=== PATIENT | male | born 2005 | race Caucasian/White ===

== ENCOUNTER 2023-02-02 21:47 | Emergency (ER) | payer OTHER, SELFPAY ==
--- NOTE | ~2023-02-02 | XR_ITS ---
XR knee LT 3V DATE: 02/02/2023 22:26 INDICATION: Fall. Lateral left knee pain TECHNIQUE: 3 views including AP and lateral projections COMPARISON: None FINDINGS: There is evidence of a virtually nondisplaced transverse metaphyseal fracture of the proxim al tibia. There is prominent distention of the suprapatellar bursa consistent with lipohemarthrosis. Consider CT or MR the examination for more definitive evaluation. IMPRESSION: Proximal tibial metaphyseal fracture with hemarthrosis Reviewed, dictated and finalized at location A.
--- NOTE | ~2023-02-02 | XR_ITS ---
XR knee LT min 4V DATE: 02/02/2023 23:44 INDICATION: XR knee LT min 4V DATE: 02/02/2023 23:44 TECHNIQUE: 4 views COMPARISON: None FINDINGS: Suprapatellar knee joint effusion is noted. There is a subtle transverse nondisplaced metaphyseal fracture of the tibia. No other fracture or dislocation is detected. IMPRESSION: Transverse metaphyseal fracture of the proximal tibia Reviewed, dictated and finalized at location A.
[2023-02-02 21:56] VITALS: BP 110/70; PULSE 98; RESP 16; TEMP 36.7; O2SAT 99
--- NOTE | 2023-02-02 22:56 | ED.GENADULT ---
HPI - General Adult General Chief complaint: Extremity Injury, Lower Stated complaint: L knee injury Time Seen by Provider: 02/02/23 22:09 Source: patient Mode of arrival: ambulatory Limitations: no limitations History of Present Illness HPI narrative: This is a 17-year-old biological male who presents as female who presents for chief complaint of left knee injury occurring just prior to arrival. Patient states that she was running through the street and feels like she may have stepped in a pothole. She states her ankle twisted and she hyperextended the knee. Reports immediate pain and difficulty with ambulation after this injury. Endorses audible pop. Denies any further site of pain or injury. Denies ankle pain. Related Data Allergies Allergy/AdvReac Type Severity Reaction Status Date / Time ibuprofen Allergy Anaphylaxis Verified 02/02/23 23:04 Review of Systems Review of Systems: CONSTITUTIONAL: Denies fever, chills, or sweats. EYES: Denies visual changes, redness, or discharge. ENT: Denies rhinorrhea, congestion, sore throat, or otalgia. CARDIOVASCULAR: Denies chest pain, palpitations, or edema. RESPIRATORY: Denies cough or dyspnea. GASTROINTESTINAL: Denies abdominal pain, nausea, vomiting, or diarrhea. GENITOURINARY: Denies dysuria or hematuria. SKIN: Denies rash or itching. MUSCULOSKELETAL: See HPI NEUROLOGIC: Denies headache, numbness, dizziness, or weakness. PSYCHIATRIC: Denies anxiety or depression. Exam Narrative: GENERAL: Well-appearing, well-nourished, and in no acute distress. HEAD: Normocephalic, atraumatic. EYES: PERRLA and EOMI. ENT: Nares clear, no rhinorrhea or epistaxis. Mucous membranes moist. Oropharynx without tonsillar hypertrophy exudate or other lesions. NECK: Supple. No adenopathy or masses. CHEST: No respiratory distress. Clear to auscultation. No wheezes rales or rhonchi HEART: Regular rate and rhythm. No murmur heard. Normal peripheral pulses. ABDOMEN: Soft, nontender, nondistended, normal active bowel sounds. MSK: Left knee: No obvious deformity or bruising present. Minimal swelling present. Tenderness throughout the knee. Active range of motion reduced due to pain. Full passive range of motion with pain. Neurovascularly intact distally. Right knee: Benign. SKIN: Warm, dry, no rash. NEURO: Alert and oriented x3. No focal deficits. PSYCH: Normal mood and affect. Course Vital Signs Vital signs: Vital Signs Temperature 98.1 F 02/02/23 21:56 Pulse Rate 98 02/02/23 21:56 Respiratory Rate 16 02/02/23 21:56 Blood Pressure 110/70 02/02/23 21:56 Pulse Oximetry 99 02/02/23 21:56 Oxygen Delivery Room Air 02/02/23 21:56 Temperature 98.4 F 02/03/23 00:30 Pulse Rate 103 H 02/03/23 00:30 Respiratory Rate 15 02/03/23 00:30 Blood Pressure 124/89 02/03/23 00:30 Pulse Oximetry 98 02/03/23 00:30 Oxygen Delivery Room Air 02/02/23 21:56 Medical Decision Making MDM Narrative Medical decision making narrative: This is a 17-year-old biological male who presents as female and comes in for chief complaint of left knee injury. [place] she had a hyperextension injury. Vitals are stable. Exam shows a stable knee. X-rays are negative for any acute fractures or dislocations. Feel her symptoms are more consistent with a ligamentous or muscular strain/sprain. She will be put in a knee immobilizer and discharged in stable condition. Orthopedic referral given. Supportive measures and return precautions discussed. Patient is understanding and agreeable with the plan for discharge and follow-up with specialist. Vital Signs Vital Signs: Vital Signs Temperature 98.1 F 02/02/23 21:56 Pulse Rate 98 02/02/23 21:56 Respiratory Rate 16 02/02/23 21:56 Blood Pressure 110/70 02/02/23 21:56 Pulse Oximetry 99 02/02/23 21:56 Oxygen Delivery Room Air 02/02/23 21:56 Temperature 98.4 F 02/03/23 00:30 Pulse Rate 103 H 02/03/23 00:30
[2023-02-02] MEDS: HYDROcodone/acetaminophen (*CRX) 5-325 MG TABLET 1 TAB PO (23:05)
[2023-02-03 00:30] VITALS: BP 124/89; PULSE 103; RESP 15; TEMP 36.9; O2SAT 98
== END 2023-02-03 00:31 | disposition home or self-care (01) ==
PROVIDERS: Emergency Provider Physician Assistant
DX: M25.562 Pain in left knee (principal)
CPT/HCPCS: 73562; 73564; 99284; A9270